=== PATIENT | male | born 1980 | race Native Hawaiian/Other Pacific Islander ===

== ENCOUNTER 2019-06-20 08:34 | Outpatient (CLI) | payer OTHER ==
[2019-06-20 09:20] LABS: POTASSIUM 4.3 mmol/L (3.6-5.2)
[2019-06-20 09:50] LABS: PLATELET COUNT 182 K/uL (142-355)
== END 2019-06-20 19:47 | disposition home or self-care (01) ==
LOC: LABW 08:34
PROVIDERS: Internal Medicine
DX: Z00.00 Encounter for general adult medical examination without abnormal findings (principal)
CPT/HCPCS: 36415; 80053; 80061; 81000; 84153; 84439; 84443; 85027

== ENCOUNTER 2019-07-21 13:33 | Outpatient (CLI) | payer BC, OTHER | END 2019-07-21 22:35 | disposition home or self-care (01) | LOC: MRI 13:33 | DX: M51.16 Intervertebral disc disorders with radiculopathy, lumbar region (principal) ==

== ENCOUNTER 2021-03-29 08:39 | Outpatient (CLI) | payer BC | END 2021-03-29 19:01 | disposition home or self-care (01) | LOC: MRI 08:39 | PROVIDERS: ATTEND Internal Medicine | DX: R51.9 Headache, unspecified (principal) ==